=== PATIENT | male | born 1960 | race Asian ===

== ENCOUNTER 2023-07-10 14:13 | Emergency (ER) | payer OTHER ==
[2023-07-10 14:27] VITALS: O2SAT 96
--- NOTE | 2023-07-10 15:19 | ED Physician Documentation ---
PD HPI URI - Stated complaint Stated Complaint: COUGH/SOA - Chief complaint Chief Complaint: Resp - Additional information Additional information: 63-year-old male presents to the emergency department with his for similar symptoms of upper respiratory infection. Patient started feeling ill on Thursday and patient started experiencing symptoms of cough and fevers and chills today. PD PAST MEDICAL HISTORY - Past Medical History Past Medical History: Yes Endocrine/Autoimmune: HyPERthyroidism - Past Surgical History Past Surgical History: No Derm: Skin cancer surgery - Present Medications Home Medications: Ambulatory Orders Medication Instructions Recorded Confirmed Oseltamivir [Tamiflu] 75 mg PO BID 5 Days #9 cap 07/10/23 - Allergies Allergies/Adverse Reactions: Allergies Allergy/AdvReac Type Severity Reaction Status Date / Time No Known Drug Allergies Allergy Verified 07/10/23 14:21 - Social History Does the pt smoke?: Yes Smoking Status: Current every day smoker Does the pt drink ETOH?: No Does the pt have substance abuse?: No - Immunizations Immunizations are current?: Yes PD ED PE NORMAL - Vitals Vital signs reviewed: Yes - General General: Alert and oriented X 3, No acute distress, Well developed/nourished - HEENT HEENT: Atraumatic, PERRL - Neck Neck: Supple, no meningeal sign - Cardiac Cardiac: RRR - Respiratory Respiratory: No respiratory distress, Clear bilaterally - Abdomen Abdomen: Normal bowel sounds, Soft, Non tender, Non distended, No organomegaly Results - Vitals Vitals: Vital Signs - 24 hr 07/10/23 07/10/23 14:21 16:10 Temperature 36.5 C Heart Rate 99 81 Respiratory 16 18 Rate Blood Pressure 125/78 127/78 O2 Saturation 96 96 - Labs Labs: Laboratory Tests 07/10/23 14:27 Nasal Adenovirus (PCR) NOT DETECTED Nasal B. parapertussis DNA (PCR) NOT DETECTED Nasal Coronavir 229E PCR NOT DETECTED Nasal Coronavir HKU1 PCR NOT DETECTED Nasal Coronavir NL63 PCR NOT DETECTED Nasal Coronavir OC43 PCR NOT DETECTED Nasal Enterovir/Rhinovir PCR NOT DETECTED Nasal Influ A H1 2009 PCR DETECTED A Nasal Influenza B PCR NOT DETECTED Nasal Parainfluen 1 PCR NOT DETECTED Nasal Parainfluen 2 PCR NOT DETECTED Nasal Parainfluen 3 PCR NOT DETECTED Nasal Parainfluen 4 PCR NOT DETECTED Nasal RSV (PCR) NOT DETECTED Nasal B.pertussis DNA PCR NOT DETECTED Nasal C.pneumoniae (PCR) NOT DETECTED Clarence Human Metapneumo PCR NOT DETECTED Nasal M.pneumoniae (PCR) NOT DETECTED Nasal SARS-CoV-2 (PCR) NOT DETECTED PD Medical Decision Making - ED course ED course: 63-year-old male presents emergency department with upper respiratory infection symptoms similar to what his is experiencing who also checked into the emergency department. Patient tested positive for influenza A. Because his symptoms are started today he is eligible for Tamiflu. He was given first dose of Tamiflu here in the emergency department and prescription sent to his preferred pharmacy. He was given some liquid ibuprofen to follow-up to help with the sore throat symptoms he is experiencing. He was taught how to manage his symptoms with supportive ca re he is given ER return precautions and told to follow-up with his primary care provider outpatient as needed. Departure - Departure Disposition: 01 Home, Self Care Clinical Impression: Influenza Instructions: ED Flu, Medication: Tamiflu (Oseltamivir) Prescriptions: Oseltamivir [Tamiflu] 75 mg PO BID 5 Days #9 cap Comments: Thank you for trusting us with your care. You are experiencing the symptoms of the flu and have tested positive for the flu. We have started you on a medication called Tamiflu here in the ER We gave you the first dose today you can take the second dose late tonight around midnight and then you will start it morning and night for the next 4 days. I called a prescription to [facility] in [place]. You can alternate between Tylenol ibuprofen for any body pain and fevers. We have given you for him milligrams of ibuprofen here to help with your sore throat. You can take 1000 mg of Tylenol every 8 hours and 600 mg of ibuprofen every 6 hours. Drink plenty of fluids and eat a healthy well-balanced diet and get plenty of rest. Follow-up with your primary care provider as needed please come back to the ER if you are having fevers lasting longer than 5 days or any other concerning symptoms. Wishing you a speedy recovery. Forms: PCP List Discharge Date/Time: 07/10/23 16:13
[2023-07-10 15:24] LABS: B. PARAPERTUSSIS- RESP PCR PAN NOT DETECTED; B. PERTUSSIS- RESP PCR PANEL NOT DETECTED; C. PNEUMONIAE- RESP PCR PANEL NOT DETECTED; CORONAVIRUS 229E-RESP PCR NOT DETECTED; CORONAVIRUS HKU1-RESP PCR NOT DETECTED; CORONAVIRUS NL63-RESP PCR NOT DETECTED; CORONAVIRUS OC43-RESP PCR NOT DETECTED; HUMAN METAPNEUMOVIRUS NOT DETECTED; INFLUENZA A H1 2009- RESP PCR DETECTED; INFLUENZA B - RESP PCR PANEL NOT DETECTED; M. PNEUMONIAE- RESP PCR PANEL NOT DETECTED; PARAINFLUENZA VIRUS 1 NOT DETECTED; PARAINFLUENZA VIRUS 2 NOT DETECTED; PARAINFLUENZA VIRUS 3 NOT DETECTED; PARAINFLUENZA VIRUS 4 NOT DETECTED; RHINOVIRUS/ENTEROVIRUS NOT DETECTED; RSV- RESP PCR PANEL NOT DETECTED; SARS-CoV-2 -RESP PCR PANEL NOT DETECTED
[2023-07-10] MEDS: OSELTAMIVIR 75 MG CAPSULE PO STA (16:07)
[2023-07-10] MEDS: IBUPROFEN 200 MG/10 ML UDC PO STA (16:08)
[2023-07-10 16:14] VITALS: BP 127/78
== END 2023-07-10 16:13 | disposition home or self-care (01) ==
LOC: ED 14:13
DX: J10.1 Influenza due to other identified influenza virus with other respiratory manifestations (principal); F17.200 Nicotine dependence, unspecified, uncomplicated; Z20.818 Contact with and (suspected) exposure to other bacterial communicable diseases; Z20.822 Contact with and (suspected) exposure to COVID-19; Z20.828 Contact with and (suspected) exposure to other viral communicable diseases
CPT/HCPCS: 87633; 99283; A9270